=== PATIENT | female | born 1965 | race Caucasian/White ===

== ENCOUNTER 2017-03-04 07:07 | Inpatient (IN) | payer BC ==
[~2017-03-04] VITALS: Ht 157.5 cm; Wt 83.0 kg
[2017-03-04 07:07] VITALS: BP_SYST 131
[2017-03-04 07:53] LABS: HEMOGLOBIN 13.5 g/dL (12.0-16.0); MEAN CORPUSCULAR HEMOGLOBIN 31 pg (27-31); MEAN CORPUSCULAR HGB CONC 34 % (32-36); MEAN CORPUSCULAR VOLUME 92 fL (79.0-98.0); PLATELET COUNT (AUTO) 278 K/uL (130-430); RED BLOOD CELL COUNT(AUTO) 4.36 MIL/uL (4.2-6.2); RED CELL DISTRIBUTION WIDTH 12.4 % (9.0-15.0); WHITE BLOOD COUNT (AUTO) 7.4 K/uL (4.8-10.8)
[2017-03-04 08:01] LABS: BILIRUBIN,URINE NEGATIVE (NEGATIVE); BLOOD, URINE NEGATIVE (NEGATIVE); CLARITY/URINE HAZY (CLEAR); COLOR,URINE YELLOW (YELLOW); GLUCOSE,URINE NEGATIVE (NEGATIVE); KETONES,URINE NEGATIVE (NEGATIVE); LEUKOCYTE ESTERASE ,URINE 3+ (NEGATIVE); NITRITE, URINE NEGATIVE (NEGATIVE); PROTEIN URINE NEGATIVE (NEGATIVE); UROBILINOGEN,URINE 0.2 (0.2-1.0)
[2017-03-04 08:11] LABS: CALCIUM 8.1 mg/dL (8.4-11.0); CREATININE 0.64 mg/dL (0.55-1.30)
[2017-03-04 08:12] LABS: BACTERIA,URINE MODERATE /HPF (None Seen); MUCUS,URINE 1+ /LPF (None Seen); RBC,URINE 0-3 /HPF (0-3)
[2017-03-04 08:28] LABS: BASOPHILS % (MANUAL) 0 % (0-2); EOSINOPHILS % (MANUAL) 2 % (0-7); LYMPHOCYTES % (MANUAL) 35 % (20-46); MONOCYTES % (MANUAL) 10 % (0-11)
[2017-03-04] MEDS ORDERED: MECLIZINE HCL 25 MG TABLET (ANITVERT) PO ONE (08:30)
[2017-03-04 08:53] LABS: INR 0.9 (0.8-1.2); PROTHROMBIN TIME 9.3 SECS (9.5-12.5)
[2017-03-04] MEDS ORDERED: ALPR1TAB2 PO (09:55)
[2017-03-04] MEDS ORDERED: [UNRECOGNIZED DRUG - OTHER] PO (09:55)
[2017-03-04] MEDS ORDERED: CARI350T27 PO (09:55)
[2017-03-04 10:20] VITALS: BP_SYST 128
[2017-03-04 10:29] VITALS: BP_SYST 128
[2017-03-04] MEDS ORDERED: strattera (10:57)
[2017-03-04] MEDS ORDERED: KLO1 PO (10:57)
[2017-03-04 12:00] VITALS: BP_SYST 97
[2017-03-04] MEDS: cefTRIAXone 1 GM in D5W 50 ML IV SCH (13:15)
[2017-03-04 16:00] VITALS: BP_SYST 147
[2017-03-04 20:00] VITALS: BP_SYST 122
[2017-03-04] MEDS ORDERED: STRATTERA 60 MG SCH (21:00)
[2017-03-04] MEDS: CARISOPRODOL 350 MG TABLET PO SCH (21:52)
[2017-03-04] MEDS: NITROFURANTOIN MONOHYD/M-CRYST 100 MG CAPSULE PO SCH (21:52)
[2017-03-04] MEDS ORDERED: clonazePAM 0.5 MG TABLET PO ONE (22:00)
[2017-03-05 00:31] VITALS: BP_SYST 118
[2017-03-05 04:05] VITALS: BP_SYST 119
[2017-03-05 06:40] LABS: BASOPHILS % (AUTO) 0.5 % (0.0-2.0); EOSINOPHILS # (AUTO) 0.1 K/uL (0.0-0.4); EOSINOPHILS % (AUTO) 1.9 % (0.0-4.0); HEMATOCRIT 41.1 % (36-48); HEMOGLOBIN 13.9 g/dL (12.0-16.0); LYMPHOCYTES # (AUTO) 2.7 K/uL (1.0-5.5); LYMPHOCYTES % (AUTO) 35.8 % (20.5-51.5); MEAN CORPUSCULAR HEMOGLOBIN 31 pg (27-31); MEAN CORPUSCULAR HGB CONC 34 % (32-36); MEAN CORPUSCULAR VOLUME 93 fL (79.0-98.0); MONOCYTES # (AUTO) 0.5 K/uL (0.0-1.0); MONOCYTES % (AUTO) 6.8 % (1.7-9.3); NEUTROPHILS # (AUTO) 4.4 K/uL (1.8-7.7); PLATELET COUNT (AUTO) 304 K/uL (130-430); RED BLOOD CELL COUNT(AUTO) 4.43 MIL/uL (4.2-6.2); RED CELL DISTRIBUTION WIDTH 12.6 % (9.0-15.0); WHITE BLOOD COUNT (AUTO) 7.7 K/uL (4.8-10.8)
[2017-03-05 06:55] LABS: ALBUMIN 3.6 g/dL (3.4-4.8); CALCIUM 8.2 mg/dL (8.4-11.0); CREATININE 0.79 mg/dL (0.55-1.30); POTASSIUM 3.6 mmol/L (3.5-5.1); TOTAL BILIRUBIN 0.3 mg/dL (0.0-1.0)
[2017-03-05 08:00] VITALS: BP_SYST 116
[2017-03-05] MEDS: NITROFURANTOIN MONOHYD/M-CRYST 100 MG CAPSULE PO SCH ×2 (08:13→21:46)
[2017-03-05] MEDS: CARISOPRODOL 350 MG TABLET PO SCH ×3 (08:13→21:47)
[2017-03-05] MEDS: cefTRIAXone 1 GM in D5W 50 ML IV SCH (10:47)
[2017-03-05 11:30] VITALS: BP_SYST 134
[2017-03-05 15:32] VITALS: BP_SYST 121
[2017-03-05 20:00] VITALS: BP_SYST 121
[2017-03-05] MEDS ORDERED: clonazePAM 0.5 MG TABLET PO SCH (21:00)
[2017-03-05] MEDS: ATOMOXETINE 60 MG PO SCH (21:50)
[2017-03-06 01:13] VITALS: BP_SYST 132
[2017-03-06 04:00] VITALS: BP_SYST 118
[2017-03-06 08:00] VITALS: BP_SYST 121
[2017-03-06] MEDS: ATOMOXETINE 60 MG PO SCH (09:49)
[2017-03-06] MEDS: CARISOPRODOL 350 MG TABLET PO SCH (09:49)
[2017-03-06] MEDS: NITROFURANTOIN MONOHYD/M-CRYST 100 MG CAPSULE PO SCH (09:49)
[2017-03-06] MEDS: cefTRIAXone 1 GM in D5W 50 ML IV SCH (11:06)
[2017-03-06 12:10] VITALS: BP_SYST 134
== END 2017-03-06 13:30 | disposition short-term general hospital (02) | DRG 690 ==
LOC: SED 07:07 → STU 10:02 → SMU 03-05 22:33
PROVIDERS: ADMIT Internal Medicine; ATTEND Internal Medicine
DX: N39.0 Urinary tract infection, site not specified (principal); E66.9 Obesity, unspecified; R27.0 Ataxia, unspecified; M19.071 Primary osteoarthritis, right ankle and foot; E78.5 Hyperlipidemia, unspecified; F41.9 Anxiety disorder, unspecified; G89.29 Other chronic pain; F98.8 Other specified behavioral and emotional disorders with onset usually occurring in childhood and adolescence; Z88.6 Allergy status to analgesic agent; Z91.018 Allergy to other foods; Z68.33 Body mass index [BMI] 33.0-33.9, adult
CPT/HCPCS: 36415; 70450-TC; 70551; 71010; 80048; 80053; 80061; 81000-TC; 84443-TC; 85007; 85025; 85027; 85610-TC; 85730-TC; 87086; 93005; 93306; 93880; 99285; J0696; J7050; J7060; J8597

== ENCOUNTER 2018-01-11 09:09 | Day surgery (SDC) | payer BC ==
[~2018-01-11] VITALS: Ht 160 cm; Wt 79.8 kg
[~2018-01-11 09:09] MED LIST: CARI350T27 PO; CEFAZOLIN SOD 1 GM/ ISO 50 ML PREMIX IV ONE; KLO1 PO; strattera
[2018-01-11 09:27] LABS: HCG,QUAL RESULT NEGATIVE (NEGATIVE)
[2018-01-11] MEDS ORDERED: ONDANSETRON HCL 4 MG/2 ML VIAL IVP PRN (11:15)
[2018-01-11] MEDS ORDERED: MEPERIDINE HCL/PF 50 MG/ML AMP IM PRN (11:15)
[2018-01-11] MEDS ORDERED: SEVOFLURANE 15 MIN GAS INH ONE (11:20)
[2018-01-11] MEDS ORDERED: DEXAMETHASONE SOD PHOSPHATE 4 MG/ML VIAL ONE (11:20)
[2018-01-11] MEDS ORDERED: NS 1000 ML IV.SOLN IV ONE (11:20)
[2018-01-11] MEDS ORDERED: ONDANSETRON HCL 4 MG/2 ML VIAL ONE (11:20)
[2018-01-11] MEDS ORDERED: KETOROLAC TROMETHAMINE 30 MG VIAL ONE (11:20)
[2018-01-11] MEDS ORDERED: PROPOFOL 200MG/ 20ML VIAL (DIPRIVAN) IV ONE (11:20)
[2018-01-11] MEDS ORDERED: MIDAZOLAM HCL 5 MG/ML VIAL (VERSED) IV ONE (11:20)
[2018-01-11] MEDS ORDERED: fentaNYL CITRATE/PF 100 MCG/2 ML AMP ONE (11:20)
[2018-01-11] MEDS ORDERED: CEFAZOLIN 1 GM IVPB PREMIX 50 ML IV ONE (11:20)
[2018-01-11 16:08] VITALS: BP_SYST 127
== END 2018-01-11 13:20 | disposition home or self-care (01) ==
LOC: SDS 09:09 → SMU 09:10 → SDS 13:20
PROVIDERS: ATTEND Specialist
DX: T83.32XA Displacement of intrauterine contraceptive device, initial encounter (principal); Z68.31 Body mass index [BMI] 31.0-31.9, adult; Z88.8 Allergy status to other drugs, medicaments and biological substances; J45.909 Unspecified asthma, uncomplicated; Z79.899 Other long term (current) drug therapy; Z98.890 Other specified postprocedural states
CPT/HCPCS: 58300; 58562; 84703; 88300; 88305; J0690; J1100; J1885; J2250; J2405; J2704; J3010; J7030